=== PATIENT | male | born 1965 | race Caucasian/White ===

== ENCOUNTER 2022-04-22 19:52 | Emergency (ER) | payer SELFPAY ==
[~2022-04-22] VITALS: Ht 165.1 cm; Wt 72.6 kg
[2022-04-22] MEDS ORDERED: IBUP400 PO (23:16)
== END 2022-04-22 23:20 | disposition home or self-care (01) ==
LOC: ER 19:52
DX: M25.512 Pain in left shoulder (principal)
CPT/HCPCS: 73030; 99283-25; A9270

== ENCOUNTER 2024-04-22 11:13 | Emergency (ER) | payer OTHER ==
[~2024-04-22] VITALS: Ht 165.1 cm; Wt 72.6 kg
[~2024-04-22 11:13] MED LIST: IBUP400 PO
[2024-04-22 11:20] VITALS: BP 162/96
[2024-04-22] MEDS ORDERED: LISI20 PO (11:24)
== END 2024-04-22 14:51 | disposition home or self-care (01) ==
LOC: ER 11:13
DX: M54.2 Cervicalgia (principal); I10 Essential (primary) hypertension
CPT/HCPCS: 72040; 99283-25